=== PATIENT | male | born 1980 | race Two or more races ===

== ENCOUNTER 2019-07-04 11:09 | Emergency (ER) | payer SELFPAY ==
[~2019-07-04] VITALS: Ht 167.6 cm; Wt 97.0 kg
[2019-07-04] MEDS ORDERED: CARBAMIDE PEROXIDE EAR DROPS 6.5%, 15ML RIGHT EAR ONE (12:00)
--- NOTE | 2019-07-04 12:04 | NUR ---
pt ambulated to room, resting in gurney, changed into gown, given water to help him urinate, NAD, even and unlabored respirations, call light within reach, WCTM.
[2019-07-04] MEDS ORDERED: CARBAMIDE PEROXIDE EAR DROPS 6.5%, 15ML ONE (12:29)
--- NOTE | 2019-07-04 13:17 | NUR ---
pt resting in gurney, irrigated ear per MAR, NAD, denies additional needs, call light within reach, even and unlabored respirations, WCTM.
[2019-07-04 13:22] LABS: CULTURE INDICATED? NO; MICROSCOPIC NOT IND
[2019-07-04 14:47] VITALS: BP 145/85
== END 2019-07-04 15:38 | disposition home or self-care (01) ==
LOC: ED 14:28
DX: H61.21 Impacted cerumen, right ear (principal); N50.819 Testicular pain, unspecified
CPT/HCPCS: 81003; 99282